=== PATIENT | male | born 1955 | race Caucasian/White ===

== ENCOUNTER → 2021-01-13 | Outpatient (CLI) | payer OTHER ==
[~2021-01-13] MED LIST: MOBIC15 MG PO; PAXIL10 MG PO; PRINIVIL20 M1 PO; ZOCOR20 MG PO
== END ==
LOC: ULTRA 09:10
PROVIDERS: ATTEND Family Medicine
DX: I25.10 Atherosclerotic heart disease of native coronary artery without angina pectoris (principal); R09.89 Other specified symptoms and signs involving the circulatory and respiratory systems